=== PATIENT | male | born 1980 | race Caucasian/White ===

== ENCOUNTER 2018-02-28 10:18 | Emergency (ER) | payer OTHER, SELFPAY ==
[2018-02-28 10:20] VITALS: BP 142/83; PULSE 84; RESP 12; TEMP 36.1; O2SAT 100
[2018-02-28] MEDS: PROPARACAINE 0.5% OPHTH SOL 1 DROPS EYE-RIGHT (10:53)
--- NOTE | 2018-02-28 11:44 | ED.EYEPROB ---
HPI - Eye Problem General Chief complaint: Eye Problems Stated complaint: SCRAPPED RIGHT EYE, HIT LEFT HAND & SWOLLEN TODAY Time Seen by Provider: 02/28/18 11:23 Source: patient Mode of arrival: ambulatory Limitations: no limitations History of Present Illness HPI Narrative: Patient is a 37-year-old male presents with right eye irritation and left hand pain. He says right eye started after lunch she yesterday he wiped his eye with a nap can began to get more irritated throughout the day. He tried putting Visine in the eye but that actually made it worse and he realized Visine is 9 years . He does have some eye dryness and discomfort he had minimal discharge from it this morning. No blurry vision or double vision. Last week he bumped his left hand on a refrigerator door. The swelling has gone down but he noticed that it is still painful and looks different than his right hand. MD chief complaint: eye pain Related Data Home Medications Medication Instructions Recorded Confirmed [aller gabo] #0 01/19/17 Previous Rx's Medication Instructions Recorded lorazepam 0.5 mg tablet 0 mg PO QDAYP PRN #10 tab 11/04/17 gentamicin 0.5 inch EYE-RIGHT .HS #3.5 gram 02/28/18 gentamicin 2 drop EYE-RIGHT Q4H #5 ml 02/28/18 Allergies Allergy/AdvReac Type Severity Reaction Status Date / Time No Known Drug Allergies Allergy Verified 02/28/18 11:00 Review of Systems Review of Systems All systems reviewed & are unremarkable except as noted in HPI and below Constitutional Denies chills, Denies fever(s), Denies lethargy and Denies weakness Eyes Reports as per HPI Cardiovascular Denies chest pain and Denies dyspnea Respiratory Denies cough and Denies dyspnea Gastrointestinal Gastrointestinal: Denies abdominal pain Musculoskeletal Reports as per HPI Integumentary/Breasts Denies pruritus, Denies erythema, Denies rash and Denies wounds Neurologic Denies weakness PFSH Family History Father Age: 61 Hypertension Social History Smoking Status: Never smoker alcohol intake: never substance use type: does not use Comment: Left hand dominant, works as a contractor Exam Initial Vital Signs Initial Vital Signs: Vital Signs Temperature 96.9 F L 02/28/18 10:20 Pulse Rate 84 02/28/18 10:20 Respiratory Rate 12 02/28/18 10:20 Blood Pressure 142/83 H 02/28/18 10:20 Pulse Oximetry 100 02/28/18 10:20 Const General: cooperative and well developed Nutritional Appearance: well nourished Orientation: alert, awake, oriented x3 and not confused Eyes Visual Thompson: normal visual thompson by confrontation Alignment and Position: alignment normal Periorbital: periorbital findings normal Eyelids: eyelids normal Conjunctivae: conjunctival abnormality right conjunctival injection diffuse Cornea: corneas abnormal on the right fluorescein used and abrasion at the following clock position (1'O Clock) and fluorescein used Pupils: PERRL EOM: EOM intact bilaterally Extrem Left upper extremity: hand (Mild swelling and pain over 5th MCP on left hand) Procedures Orthopedic Splinting/Casting Injury #1: Side: left Upper Extremity Injury Location: hand Upper Extremity Immobilizer: ulnar gutter Additional Comments: splint applied by a versed nurse and supervised by me. Neurovascularly intact and checked by myself afterwards. Course Orders Ordered: Discontinued Medications Proparacaine HCl (Parcaine 0.5% Ophth Farrah) 1 drops EYE-RIGHT NOW ONE Stop: 02/28/18 10:53 Last Admin: 02/28/18 10:53 Dose: 1 drop Vital Signs - 8 hr 02/28/18 10:20 Temperature 96.9 F L Pulse Rate 84 Respiratory Rate 12 Blood Pressure 142/83 H Pulse Oximetry 100 MDM - Eye Problem Imaging Data Left hand x-ray: Radiologist's impression: PROCEDURE: XR HAND LT MIN 3V INDICATIONS: swelling pain 5th mcp TECHNIQUE: 3 views of the hand(s) acquired. COMPARISON: None. FINDINGS: Bones: There is an angulated fracture of the distal fifth metacarpal without intra-articular extension. Soft tissues: No suspicious soft tissue calcifications. IMPRESSION: Angulated distal fifth metacarpal fracture. Dictated by: Savanna Jarrell M.D. on 02/28/2018 at 12:06 Discharge Plan Departure Patient Disposition: Home Clinical Impression: Abrasion of right cornea, Boxer's metacarpal fracture, neck, closed Discharge Date/Time: 02/28/18 13:10 Interventions: ED Discharge Assessment Last Done: 02/28/18 13:10 Instructions: Corneal Abrasion, Boxer's Fracture Activity Restrictions/Additional Instructions: *You have been diagnosed with left hand finger fracture and right corneal abrasion *What to do: Keep hand in splint at all times coming need follow-up with Orthopedics next week *Continue to take medications as directed -use eye drops throughout the day as directed Use appointment at nighttime to help keep eye moist *Follow up with your primary care provider in 2-3 days, follow up with Orthopedics, call today to schedule point *Return to ER if you should have increasing pain, numbness, tingling, difficulty see or any new, worsening or concerning symptoms Prescriptions: New gentamicin 0.3 % drops 2 drop EYE-RIGHT Q4H Qty: 5 RF: 0 gentamicin 0.3 % (3 mg/gram) ointment 0.5 inch EYE-RIGHT .HS Qty: 3.5 RF: 0 No Action [aller gabo] Qty: 0 RF: 0 lorazepam 0.5 mg tablet PO QDAYP PRN (Reason: anxiety) Qty: 10 RF: 0 Referrals: [facility] [Outside] Mireya Johnson DO [Primary Care Provider] -
--- NOTE | 2018-02-28 11:48 | DI.RAD.S_ITS ---
PROCEDURE: XR HAND LT MIN 3V INDICATIONS: swelling pain 5th mcp TECHNIQUE: 3 views of the hand(s) acquired. COMPARISON: None. FINDINGS: Bones: There is an angulated fracture of the distal fifth metacarpal without intra-articular extension. Soft tissues: No suspicious soft tissue calcifications. IMPRESSION: Angulated distal fifth metacarpal fracture. Dictated by: Savanna Jarrell M.D. on 02/28/2018 at 12:06 Approved by: Savanna Jarrell M.D. on 02/28/2018 at 12:10
[2018-02-28 12:07] VITALS: BP 146/88; PULSE 72; RESP 15; O2SAT 100
[2018-02-28 13:14] VITALS: BP 131/88; PULSE 71; RESP 14; O2SAT 100
== END 2018-02-28 13:10 | disposition home or self-care (01) ==
PROVIDERS: Emergency Provider Emergency Medicine; PCP Family Medicine
DX: S62.337A Displaced fracture of neck of fifth metacarpal bone, left hand, initial encounter for closed fracture (principal); W22.8XXA Striking against or struck by other objects, initial encounter
CPT/HCPCS: 29125; 73130; 99283

== ENCOUNTER → 2019-07-30 15:10 | Outpatient (CLI) | payer OTHER, MEDICAID, SELFPAY ==
[2019-07-30 15:35] LABS: Appearance Urine UA CLOUDY; Bilirubin Urine UA NEGATIVE (NEGATIVE); Color Urine UA ORANGE; Glucose Urine UA NEGATIVE (Negative); Ketones Urine UA NEGATIVE (NEGATIVE); Leukocyte Esterase Urine UA NEGATIVE (NEGATIVE); Nitrite Urine UA POSITIVE (Negative); Occult Blood Urine UA NEGATIVE (Negative); Protein Urine UA TRACE (Negative); Specific Gravity Urine UA 1.025 (1.000-1.035); Urobilinogen Urine UA 0.2 E.U./dL (0.2); pH Urine UA 5.5 (4.5-8.0)
[2019-07-30 15:49] LABS: Amorphous Sediment Urine 3+; Bacteria Urine Occasional (0-1); Calcium Oxalate Crystals Urine Many; Culture Indicated Urine Specimen Cultured; Mucus Urine 2+ (Negative); RBC Urine 0-1/HPF (0-5/HPF); Squamous Epithelial Cell Urine 0-1 /HPF (0-5/HPF); WBC Urine 0-1/HPF (0-5/HPF)
== END ==
PROVIDERS: PCP Family Medicine; Visit Provider Family Medicine
DX: R35.0 Frequency of micturition (principal)
CPT/HCPCS: 81001; 87086

== ENCOUNTER → 2019-08-03 14:06 | Outpatient (CLI) | payer OTHER, MEDICAID, SELFPAY ==
--- NOTE | 2019-08-03 14:08 | DI.US.S_ITS ---
PROCEDURE: US RENAL COMPLETE INDICATIONS: PAIN, URGENCY TECHNIQUE: Real-time scanning was performed of the kidneys and bladder, with image documentation. COMPARISON: None. FINDINGS: Kidneys: Kidneys are normal in size. Right kidney measures 10.3 cm long; left kidney measures 13.1 cm long. Right renal cortical thickness is 1.9 cm; left renal cortical thickness is 2.1 cm. Renal cortical echotexture is normal. No hydronephrosis or nephrolithiasis. No suspicious solid mass lesions. Bladder: Pre-void bladder volume is 168 mL. Post-void residual is 0 mL. Pre-void images demonstrate no intraluminal masses or stones. On pre-void images, both ureteral jets are noted with color Doppler interrogation. (Of note, ureteral jets may not be detectable in up to 25% of cases due to insufficient differences in specific gravity between ureteral and bladder urine). Miscellaneous: No free pelvic fluid. The prostate is not seen. IMPRESSION: The prostate is not seen. No significant ultrasound abnormality is seen. Dictated by: Ede Ramon M.D. on 08/03/2019 at 15:15 Approved by: Ede Ramon M.D. on 08/03/2019 at 15:16
== END ==
PROVIDERS: PCP Family Medicine; Referring Provider Family Medicine; Visit Provider Family Medicine
DX: R10.9 Unspecified abdominal pain (principal); R39.15 Urgency of urination
CPT/HCPCS: 76770

== ENCOUNTER → 2019-08-16 15:08 | Outpatient (CLI) | payer OTHER, MEDICAID, SELFPAY ==
[2019-08-16 16:10] LABS: Add Manual Diff / Slide Review NO; Basophils Absolute Auto 100 /uL (0-100); Basophils Percent Auto 1.4 % (0-2); Eosinophils Absolute Auto 300 /uL (0-450); Eosinophils Percent Auto 5.6 % (2-4); Hematocrit 37.8 % (41-53); Hemoglobin 12.8 g/dL (13.5-17.5); Lymphocytes Absolute Auto 1500 /uL (1100-4500); Lymphocytes Percent Auto 28.4 % (25-40); Mean Corpuscular HGB Conc 33.9 % (30-36); Mean Corpuscular Hemoglobin 28.7 PG (26-34); Mean Corpuscular Volume 84.5 fL (80-100); Monocytes Absolute Auto 600 /uL (0-900); Monocytes Percent Auto 11.7 % (3-14); Neutrophils Absolute Auto 2900 /uL (1500-7000); Neutrophils Percent Auto 52.9 % (50-75); Platelet Count 199 X10^3/uL (150-400); Red Blood Cell Count 4.47 X10^6/uL (4.5-5.9); Red Cell Distribution Width 13.5 % (11.6-14.8); White Blood Cell Count 5.4 X10^3/uL (4.5-11.0)
[2019-08-16 16:27] LABS: Alanine Aminotransferase 18 IU/L (<50); Albumin 4.6 g/dL (3.5-5.0); Albumin Globulin Ratio 1.5 (1.0-2.8); Alkaline Phosphatase 59 U/L (38-126); Aspartate Aminotransferase 21 IU/L (17-59); BUN Creatinine Ratio 22.2 (6-22); Bilirubin Total 0.3 mg/dL (0.2-1.3); Blood Urea Nitrogen 20 mg/dL (9-20); Calcium 9.6 mg/dL (8.4-10.2); Carbon Dioxide 24 mmol/L (22-32); Chloride 105 mmol/L (98-107); Estimated Glomerular Filt Rate > 60.0 mL/min (>60); Globulin 3.1 g/dL (1.7-4.1); Glucose 123 mg/dL (70-100); HEMOLYSIS < 15 (0-50); Hemoglobin A1C% w Est Avg Glu 5.6 % (4.0-6.0); Potassium 4.1 mmol/L (3.4-5.1); Sodium 139 mmol/L (137-145); Total Protein 7.7 g/dL (6.3-8.2)
[2019-08-16 16:56] LABS: Prostate Specific Antigen Scrn 0.537 ng/mL (0.1-4.0)
== END ==
PROVIDERS: PCP Family Medicine; Referring Provider Family Medicine; Visit Provider Family Medicine
DX: R39.15 Urgency of urination (principal); R35.0 Frequency of micturition; Z83.3 Family history of diabetes mellitus
CPT/HCPCS: 36415; 80053; 83036; 85025; G0103